=== PATIENT | female | born 1985 | race Caucasian/White ===

== ENCOUNTER 2017-04-28 22:58 | Outpatient (CLI) | payer SELFPAY | END 2017-04-28 22:59 | disposition critical access hospital (66) | LOC: EMS 22:58 | PROVIDERS: ATTEND Surgery | DX: R45.89 Other symptoms and signs involving emotional state (principal) | CPT/HCPCS: A0425; A0429 ==

== ENCOUNTER 2017-04-28 23:27 | Emergency (ER) | payer SELFPAY ==
[2017-04-28 23:55] LABS: BILIRUBIN,URINE NEGATIVE (NEGATIVE)
[2017-04-29 00:03] LABS: HCG UR QUAL NEGATIVE; UA CHARGE (STRIP ONLY) YES; UR CULTURE IF IND NOT INDICATED
--- NOTE | 2017-04-29 02:46 | ED Physician Documentation ---
PD HPI MHE - Stated complaint Stated Complaint: SI - Chief complaint Chief Complaint: MHE - History obtained from History obtained from: Patient - History of Present Illness Primary symptom: Suicidal ideation Timing - onset: Today Contributing factors: Sig other Similar symptoms before: Has not had sx before Recently seen: Not recently seen - Additional information Additional information: 31-year-old previously well female with no past psychiatric history was told by her boyfriend of 7 years that he will no longer be seen her. The patient became nearly hysterical and left driving away in her car. [place] out of [place] and walked across the bridge. Her boyfriend had followed her and she got out and gave her a bear hug. She states that she was not suicidal never made any comments or statements indicating suicidality and that she had no intention of jumping off of the bridge or thoughts of jumping off the bridge. She denies suicidal ideation. She states that she was taken by surprise by her boyfriend breaking up with her. Review of Systems Constitutional: denies: Fever, Chills Eyes: denies: Decreased vision Ears: denies: Ear pain Nose: denies: Congestion Throat: denies: Sore throat Cardiac: denies: Chest pain / pressure, Palpitations Respiratory: denies: Dyspnea, Cough GI: denies: Abdominal Pain, Nausea, Vomiting, Constipation, Diarrhea : denies: Dysuria, Frequency Skin: denies: Rash Musculoskeletal: denies: Neck pain, Back pain, Extremity pain PD PAST MEDICAL HISTORY - Past Medical History Past Medical History: No - Past Surgical History Past Surgical History: No - Present Medications Home Medications: Ambulatory Orders Medication Instructions Recorded Confirmed Levonorgestrel-Ethin Estradiol 1 tab PO DAILY 06/08/15 06/08/15 [Quasense 0.15-0.03 mg Tablet] - Allergies Allergies/Adverse Reactions: Allergies Allergy/AdvReac Type Severity Reaction Status Date / Time No Known Drug Allergies Allergy Verified 06/08/15 17:25 - Social History Does the pt smoke?: No Smoking Status: Never smoker Does the pt drink ETOH?: Yes Does the pt have substance abuse?: No - Immunizations Immunizations are current?: Yes PD ED PE NORMAL - Vitals Vital signs reviewed: Yes (tachy and hypertensive ) - General General: No acute distress, Well developed/nourished - HEENT HEENT: Atraumatic, PERRL - Neck Neck: Supple, no meningeal sign, No bony TTP - Cardiac Cardiac: RRR, No murmur - Respiratory Respiratory: No respiratory distress, Clear bilaterally - Abdomen Abdomen: Soft, Non tender - Back Back: No CVA TTP, No spinal TTP - Derm Derm: Normal color, Warm and dry, No rash - Extremities Extremities: No deformity, No edema - Neuro Neuro: No motor deficit, No sensory deficit - Psych Psych: Normal mood, Normal affect Results - Vitals Vitals: Vital Signs - 24 hr 04/28/17 04/29/17 23:54 03:13 Temperature 36.5 C Heart Rate 108 H 125 H Respiratory 15 18 Rate Blood Pressure 135/98 H 130/95 H O2 Saturation 97 95 Oxygen O2 Source Room air - Labs Labs: Laboratory Tests 04/28/17 23:35 Urine Color YELLOW Urine Clarity CLEAR Urine pH 6.0 Ur Specific [place] <=1.005 Urine Protein NEGATIVE Urine Glucose (UA) NEGATIVE Urine Ketones NEGATIVE Urine Occult Blood TRACE-LYSE Urine Nitrite NEGATIVE Urine Bilirubin NEGATIVE Urine Urobilinogen 0.2 (NORMAL) Ur Leukocyte Esterase NEGATIVE Ur Microscopic Review NOT INDICATED Urine Culture Comments NOT INDICATED Urine HCG, Qual NEGATIVE PD MEDICAL DECISION MAKING - ED course Complexity details: reviewed old records, reviewed results, re-evaluated patient , considered differential, d/w patient ED course: 31-year-old female from her boyfriend today was upset but not suicidal. She is anders with us for safety and denies any previous or current suicidal ideation. She will go back to her apartment and [place]. She has family in [place] and friends in [place] and she is close with her boss and his family. Departure - Departure Disposition: 01 Home, Self Care Clinical Impression: Domestic problems Condition: Stable Instructions: ED Stress React Follow-Up: Your, doctor [Other] Discharge Date/Time: 04/29/17 03:13
[2017-04-29 03:13] VITALS: BP 130/95
== END 2017-04-29 03:13 | disposition home or self-care (01) ==
LOC: EDUNIT# → ED 23:27
DX: F43.9 Reaction to severe stress, unspecified (principal)
CPT/HCPCS: 81001; 81003; 81025; 87086; 99283